=== PATIENT | female | born 1980 | race Hispanic/Latino ===

== ENCOUNTER 2024-03-23 18:17 | Emergency (ER) | payer SELFPAY ==
[2024-03-23 18:19] VITALS: BP 143/90; PULSE 85; RESP 16; TEMP 36.8; O2SAT 100
[2024-03-23 18:22] VITALS: BMI 29.1
--- NOTE | 2024-03-23 18:27 | RAD_ITS ---
EXAM: XR CHEST, 2 VIEWS CLINICAL INDICATION: chest pain TECHNIQUE: Frontal and lateral views of the chest. COMPARISON: No relevant prior studies available. FINDINGS: LUNGS AND PLEURAL SPACES: Unremarkable. No consolidation or edema. No pneumothorax. No effusion. HEART: Unremarkable. Cardiac silhouette not enlarged. MEDIASTINUM: Central airways and mediastinal contour are unremarkable. BONES/JOINTS: Unremarkable. No acute fracture. SOFT TISSUES: Unremarkable. RAD/Chest PA and Lateral IMPRESSION: No radiographic evidence of acute cardiopulmonary disease. Electronically Signed: Jer Mclean MD at 19:39 EST ,
--- NOTE | 2024-03-23 18:28 | EKG12_ITS ---
Test Reason : CP Blood Pressure : */* mmHG Vent. Rate : 74 BPM Atrial Rate : 74 BPM P-R Int : 144 ms QRS Dur : 84 ms QT Int : 368 ms P-R-T Axes : 50 49 39 degrees QTcB Int : 408 ms Normal sinus rhythm normal Confirmed by Rickey Lopez ([id number]), visual effects editor ARLEEN MISHRA ([id number]) on 03/26/2024 10:35:01 AM Referred By: AR Confirmed By: Rickey Lopez
--- NOTE | 2024-03-23 18:29 | ED.VIS.CHEST ---
HPI <HARIS Avalos - Last Filed: 03/23/24 20:15> History of Present Illness Chief Complaint: Chest Pain Narrative Narrative: 44-year-old female with no past medical history presents with multiple complaints. She speaks Icelandic and a friend is at bedside to interpret. Around 8 AM she developed pain in her left lower abdomen which radiated up towards her chest. She has had intermittent left-sided chest pain on and off all day. It is not exertional or pleuritic. She also has had pain in her left arm and left leg throughout the day but no difficulty with motor or sensory function. She reports a mild headache this morning which has resolved. No nausea or vomiting. No fever or upper respiratory symptoms. No bladder or bowel changes. She is not on any medications. She denies smoking or cardiac history. She has no history of DVT/PE, leg pain or swelling, hormone use, hemoptysis, recent immobility or travel. PFSH <HARIS Avalos - Last Filed: 03/23/24 20:15> [facility] Medical History no medical history Home Medications ?Medication ?Instructions ?Recorded ?Last Taken ?Type NK 03/23/24 Unknown History Allergy/AdvReac Type Severity Reaction Status Date / Time No Known Allergies Allergy Verified 03/23/24 18:38 Surgical History no surgical history Social History Smoking Status: Never smoker ROS <HARIS Avalos - Last Filed: 03/23/24 20:15> ROS ED ROS Narrative Constitutional: Negative for fever, chills, malaise. CVS: Positive for chest pain. Negative for palpitations, syncope. Respiratory: Negative for cough. GI: Positive for abdominal pain. Negative for nausea, vomiting, diarrhea. : Negative for dysuria, frequency. EXAM <HARIS Avalos - Last Filed: 03/23/24 20:15> Physical Exam Narrative Exam Narrative: CONST: Patient sitting in no acute distress. EYES: Normal inspection. NECK: Normal inspection. RESP: No respiratory distress, CTAB. CVS: Regular rate and rhythm, no murmur, no gallop. ABD: Soft and nontender, no guarding or rebound, nondistended. SKIN: Color normal, no rash, warm, dry, intact. EXTREMITIES: Normal appearance, moving all extremities, 5/5 upper and lower extremity strength, 2+ radial and DP pulses. NEURO: Alert and answering questions appropriately. Face symmetric, CN II through XII grossly intact, normal gait. PSYCH: Normal affect. Const Vital Signs: 03/23/24 18:19 03/23/24 18:39 03/23/24 20:10 Temperature 98.3 F 98.3 F Temperature Source Oral Pulse Rate 85 85 Respiratory Rate 16 16 Respiratory Effort Normal Blood Pressure 143/90 H 143/90 H Blood Pressure Mean 107 107 Pulse Ox 100 100 Oxygen Delivery Method Room Air <Goldy Watts MD - Last Filed: 03/23/24 20:23> Physical Exam Const Vital Signs: 03/23/24 18:19 03/23/24 18:39 03/23/24 20:10 Temperature 98.3 F 98.3 F Temperature Source Oral Pulse Rate 85 85 Respiratory Rate 16 16 Respiratory Effort Normal Blood Pressure 143/90 H 143/90 H Blood Pressure Mean 107 107 Pulse Ox 100 100 Oxygen Delivery Method Room Air MDM <HARIS Avalos - Last Filed: 03/23/24 20:15> [facility] Narrative Medical decision making narrative: History gathered from: Patient, friend who interprets 44-year-old female has had 1 day of constellation of symptoms including chest pain, abdominal pain, and pain in her left arm and leg. These symptoms have fluctuated throughout the day. She appears well and nontoxic. Vital signs stable. She has a benign exam. She is reporting pain in the left arm and leg, not motor or sensory deficits, and has a normal neurological exam. She states the pain is the entire arm and leg not in a dermatomal distribution and she has no neck pain so it is not consistent with cervical radiculopathy. She has symmetric upper and lower extremity pulses and does not have ripping or tearing chest pain so I am not concerned for dissection. Testing was ordered and CBC and BMP are overall unremarkable. test negative. EKG is sinus rhythm without ischemia and troponin is 17. CXR shows no acute process. I did not order D-dimer because she is PERC negative and do not suspect pulmonary embolism. I am not sure of the etiology of her symptoms. She was treated with Toradol, advised to take [id number] pain relievers and follow-up with a primary care doctor. Lab Data Attestation: I reviewed the patient's lab results. Labs: Laboratory Results - last 24 hr 03/23/24 03/23/24 18:36 19:35 WBC 10.5 RBC 3.71 L Hgb 12.2 Hct 35.7 L MCV 96.2 MCH 32.9 H MCHC 34.2 RDW Std Deviation 42.8 RDW Coeff of Dar 12.3 Plt Count 298 MPV 10.4 Immature Gran % (Auto) 0.500 Neut % (Auto) 68.7 Lymph % (Auto) 24.3 [place] % (Auto) 5.0 Eos % (Auto) 0.8 Baso % (Auto) 0.7 Absolute Neuts (auto) 7.2 Absolute Lymphs (auto) 2.55 Nucleated RBC % 0 Sodium 137 Potassium 3.4 L Chloride 108 H Carbon Dioxide 26.0 Anion Gap 3 L BUN 12 Creatinine 0.80 Estim Creat Clear Calc 79.46 Est GFR (MDRD) Af Amer 99 Est GFR (MDRD) Non-Af 82 BUN/Creatinine Ratio 14.9 Glucose 144 H Calcium 8.8 Troponin I High Sens 17 Serum , Qual NEGATIVE Urine Color Yellow Urine Clarity Clear Urine pH 6.5 Ur Specific Vance 1.010 Urine Protein Negative Urine Glucose (UA) Normal Urine Ketones Negative Urine Occult Blood 10 H Urine Nitrite Negative Urine Bilirubin Negative Urine Urobilinogen Normal Ur Leukocyte Esterase Negative Urine RBC 0 SEEN Urine WBC 0 SEEN Ur Squamous Epith Cells 0 SEEN Urine Bacteria 0 SEEN Urine Mucus 0 SEEN Radiography Diagnostic Testing: Clinical Impression(s) from Imaging Studies Chest X-Ray 03/23/24 18:27 IMPRESSION: No radiographic evidence of acute cardiopulmonary disease. Electronically Signed: Jer Mclean MD at 19:39 EST , ED attending interpretation of 2-view chest x-ray shows normal heart size, no acute infiltrate, edema, or effusion. EKG Initial EKG: Attestation: I personally reviewed and interpreted this EKG as follows: Interpretation: Sinus Rhythm, No Acute Injury Pattern and Non-Specific ST Changes Comments: Normal sinus rhythm at [address] changes Normal intervals <Goldy Watts MD - Last Filed: 03/23/24 20:23> [facility] Lab Data Labs: Laboratory Results - last 24 hr 03/23/24 03/23/24 18:36 19:35 WBC 10.5 RBC 3.71 L Hgb 12.2 Hct 35.7 L MCV 96.2 MCH 32.9 H MCHC 34.2 RDW Std Deviation 42.8 RDW Coeff of Dar 12.3 Plt Count 298 MPV 10.4 Immature Gran % (Auto) 0.500 Neut % (Auto) 68.7 Lymph % (Auto) 24.3 [place] % (Auto) 5.0 Eos % (Auto) 0.8 Baso % (Auto) 0.7 Absolute Neuts (auto) 7.2 Absolute Lymphs (auto) 2.55 Nucleated RBC % 0 Sodium 137 Potassium 3.4 L Chloride 108 H Carbon Dioxide 26.0 Anion Gap 3 L BUN 12 Creatinine 0.80 Estim Creat Clear Calc 79.46 Est GFR (MDRD) Af Amer 99 Est GFR (MDRD) Non-Af 82 BUN/Creatinine Ratio 14.9 Glucose 144 H Calcium 8.8 Troponin I High Sens 17 Serum , Qual NEGATIVE Urine Color Yellow Urine Clarity Clear Urine pH 6.5 Ur Specific Vance 1.010 Urine Protein Negative Urine Glucose (UA) Normal Urine Ketones Negative Urine Occult Blood 10 H Urine Nitrite Negative Urine Bilirubin Negative Urine Urobilinogen Normal Ur Leukocyte Esterase Negative Urine RBC 0 SEEN Urine WBC 0 SEEN Ur Squamous Epith Cells 0 SEEN Urine Bacteria 0 SEEN Urine Mucus 0 SEEN Radiography Chest X-Ray - ED: Read by ED Physician, Read by Radiologist and Normal Diagnostic Testing: Clinical Impression(s) from Imaging Studies Chest X-Ray 03/23/24 18:27 IMPRESSION: No radiographic evidence of acute cardiopulmonary disease. Electronically Signed: Jer Mclean MD at 19:39 EST , Treatment and Re-Evaluation :: Dr. Watts: I have personally performed a face to face assessment of the patient and have reviewed the MELODY Note. I performed a substantive portion of the visit including all aspects of the following. My handley findings include: History is multiple somatic complaints but mainly chest pain since 8 AM. Intermittent. Abdominal pain radiating into chest. Exam is afebrile. Vital signs noted. HEENT examination grossly unremarkable. Cardiovascular examination regular rate and rhythm. Lungs clear to auscultation bilaterally. Abdomen soft and nontender without guarding or rebound. Positive bowel sounds. Neurological examination nonfocal, nonlateralizing. Medical Decision Making: Check labs. Check UA. Chest pain workup. I do not feel abdominal CT is indicated as she has a benign, nonsurgical abdomen. Check EKG. Chest x-ray interpreted by myself independently shows no evidence of an acute process, no pneumonia, no pneumothorax. I reviewed the radiology report which confirms my independent interpretation. Discharge. Follow-up primary care. Other additions or changes: [None] Discharge Plan Triage Chief Complaint: Chest Pain ED Midlevel Provider: Madelyn Ríos ED Provider: Goldy Watts Dx/Rx/DC Orders Clinical Impression: Atypical chest pain, Pain in left arm, Pain in left leg Instructions: ED Chest Pain, Uncertain Cause Prescriptions: No Action NK Primary Care Provider: Care Physician,No Primary Referrals: NOT,DEFINED [Non-Staff] - Alla Maldonado Calos, BUDGET RECORD CLERK-C [[facility]] - Activity Restrictions/Additional Instructions: Your testing today look normal. I am not sure what is causing your symptoms but do not think it is anything life-threatening. I recommend you take Tylenol or Motrin as needed and follow-up with the primary care doctor. Return if your symptoms worsen. Print Language: Icelandic Disposition Disposition: Home, Self Care Discharge Date/Time: 03/23/24 20:15
--- NOTE | 2024-03-23 18:40 | ED.RN ---
Patient prompted for a urine specimen.
[2024-03-23 18:51] LABS: Absolute Lymphocyte Count 2.55 X10^3/uL (0.83-4.51); Absolute Neutrophil Count 7.2 X10^3/uL (2.0-7.7); Basophil# 0.07 X10^3/uL; Basophil% 0.7 % (0-1); Eosinophil# 0.08 X10^3/uL; Eosinophils% 0.8 % (0-5); Hematocrit 35.7 % (37-47); Hemoglobin 12.2 g/dL (12.0-15.0); Lymphocyte # 2.55 X10^3/ul (0.83-4.51); Lymphocyte % 24.3 % (19-41); Mean Corp Hgb Conc 34.2 g/dL (32-36); Mean Corpuscular Hgb 32.9 pg (27.0-32.0); Mean Corpuscular Volume 96.2 fL (81-99); Mean Platelet Vol. 10.4 fl (6.2-12.0); Monocyte# 0.53 X10^3/uL; NRBC Flagged by Analyzer 0 % (0-5); Neutrophil # 7.22 X10^3/uL (2.7-7.7); Neutrophil % 68.7 % (47-70); Platelet Count 298 K/mm3 (150-450); RBC Distribution Width CV 12.3 % (11.6-14.6); RBC Distribution Width SD 42.8 fl (35.1-43.9); Red Blood Count 3.71 M/mm3 (4.2-5.4); White Blood Count 10.5 K/mm3 (4.4-11.0)
[2024-03-23 19:01] LABS: Internal QC Validated? YES +Cl - CLEAR BKGD; Pregnancy, Serum, hCG Quali. NEGATIVE Negative
[2024-03-23 19:11] LABS: Anion Gap 3 (5-15); BUN 12 mg/dL (7-18); BUN/Creat Ratio 14.9 RATIO (10-20); Calcium,Total 8.8 mg/dL (8.5-10.1); Chloride 108 mmol/L (98-107); EST Glomerular Filtration Rate 82 mL/min (>60); Est Glom Filt Rate - Afr Amer 99 mL/min (>60); Estimated Creatinine Clearance 79.46 ml/min; Glucose 144 mg/dL (74-106); Potassium 3.4 mmol/L (3.5-5.1); Sodium Level 137 mmol/L (136-145); Troponin-I HS 17 pg/mL (3.0-54.0)
[2024-03-23] MEDS: Ketorolac 15 MG/ML Vial IV (19:13)
[2024-03-23 19:41] LABS: Bacteria 0 SEEN /hpf (None Seen); Mucous, Urine 0 SEEN /hpf (<or=2+); Red Blood Cells-Urine 0 SEEN /hpf (0-5); Squamous Epithelial Cells - UA 0 SEEN /hpf (5-10); White Blood Cells 0 SEEN /hpf (0-5)
[2024-03-23 19:46] LABS: Color, Urine Yellow (Yellow); Glucose, Dipstick Normal (Normal); Ketone-Dipstick Negative (Negative); Leukocyte Esterase-Dipstick Negative /ul (Negative); Nitrite-Dipstick Negative (Negative); Occult Blood-Urine 10 /ul (Negative); Protein-Dipstick Negative (Negative); Urine Bilirubin Dipstick Negative (Negative); Urine Clarity Clear (Clear); Urine Urobilinogen Normal (Normal); Urine pH 6.5 (5.0 - 8.0)
[2024-03-23 20:10] VITALS: BP 143/90; PULSE 85; RESP 16; TEMP 36.8; O2SAT 100
== END 2024-03-23 20:15 | disposition home or self-care (01) ==
PROVIDERS: Physician Assistant; Emergency Provider Emergency Medicine; Visit Provider Emergency Medicine
DX: R07.89 Other chest pain (principal); M79.605 Pain in left leg; M79.602 Pain in left arm; R10.32 Left lower quadrant pain
CPT/HCPCS: 71046; 80048; 81001; 84484; 84703; 85025; 93005; 96374; 99282; A4216